=== PATIENT | female | born 1955 | race Caucasian/White ===

== ENCOUNTER 2019-06-09 16:11 | Emergency (ER) | payer OTHER ==
[~2019-06-09] VITALS: Ht 157.5 cm; Wt 72.6 kg
[2019-06-09] MEDS ORDERED: LOTREL 10-40 M1 EACH PO (16:18)
[2019-06-10] MEDS ORDERED: DOLOGESIC 500-1 EACH PO (01:48)
== END 2019-06-10 02:02 ==
LOC: ER 16:11
DX: I16.0 Hypertensive urgency (principal); I10 Essential (primary) hypertension; M54.5 Low back pain

== ENCOUNTER 2019-06-18 06:00 | Emergency (ER) | payer OTHER ==
[~2019-06-18] VITALS: Ht 157.5 cm; Wt 72.6 kg
[~2019-06-18 06:00] MED LIST: DOLOGESIC 500-1 EACH PO; LOTREL 10-40 M1 EACH PO
== END 2019-06-18 12:27 | disposition home or self-care (01) ==
LOC: ER 06:00
DX: G89.29 Other chronic pain (principal); R07.89 Other chest pain
CPT/HCPCS: 71260; Q9965

== ENCOUNTER 2021-05-06 16:21 | Emergency (ER) | payer OTHER ==
[~2021-05-06] VITALS: Ht 165.1 cm; Wt 93.0 kg
== END 2021-05-06 20:15 | disposition home or self-care (01) ==
LOC: ER 16:21
DX: R10.12 Left upper quadrant pain (principal)

== ENCOUNTER 2023-08-26 04:58 | Emergency (ER) | payer OTHER ==
[~2023-08-26] VITALS: Ht 157.5 cm; Wt 72.6 kg
[2023-08-26] MEDS ORDERED: SYNTHROID75 MCG PO (05:25)
[2023-08-26] MEDS ORDERED: HYOSCYAMINE SULFATE 0.125 MG TAB.SUBL SL STA (05:56)
[2023-08-26] MEDS ORDERED: FAMOTIDINE/PF 20 MG/2 ML VIAL IV PUSH STA (05:57)
[2023-08-26] MEDS ORDERED: PROMETHAZINE HCL 50 MG/ML AMPUL IM STA (05:57)
[2023-08-26] MEDS ORDERED: LACTOBACILLUS ACIDOPHILUS 1 CAP CAP PO STA (05:58)
[2023-08-26] MEDS ORDERED: 0.9 % SODIUM CHLORIDE 1,000 ML IV ONE (06:00)
[2023-08-26 06:31] LABS: HEMATOCRIT 33.2 % (36.0-45.00); HEMOGLOBIN 11.1 g/dL (12.0-15.00); MEAN CORPUSCULAR HEMOGLOBIN 29.8 pg (27.00-32.0); MEAN CORPUSCULAR HGB CONC 33.5 g/dl (32.0-36.0); PLATELET COUNT 177 K/uL (150-450); RED BLOOD COUNT 3.73 M/uL (4.00-6.00); RED CELL DISTRIBUTION WIDTH 13.5 % (11.5-14.5)
[2023-08-26 07:10] LABS: ALBUMIN 3.1 gm/dL (3.4-5.0); BILIRUBIN TOTAL 0.28 mg/dL (0.3-1.2); CALCIUM 8.4 mg/dL (8.5-10.1); CREATININE SERUM 1.18 mg/dL (0.55-1.02); GFR 45.69; GLOBULINA 4.6 G/DL (2.4-3.5); POTASSIUM 3.6 mEq/L (3.5-5.1); TOTAL PROTEIN 7.7 gm/dL (6.4-8.2)
[2023-08-26 07:32] LABS: PH,URINE 5.5 (5.0-8.0); URINE APPEARANCE Cloudy; URINE BILIRRUBIN Small (NEGATIVE); URINE BLOOD Moderate; URINE COLOR Dark Yellow; URINE GLUCOSE Negative (NEGATIVE); URINE LEUKOCYTE Small; URINE NITRATE Negative; URINE PROTEIN 30 (NEGATIVE)
[2023-08-26 07:35] LABS: URINE EPITHELIAL CELLS 30.8 uL (0.0-38.8); URINE RBC 54.6 uL (0.0-20.8); URINE WBC 57.7 uL (0.0-23.2)
[2023-08-26 07:50] LABS: URINE EPITHELIAL CELLS 0-4 /HPF
[2023-08-26] MEDS ORDERED: ONDANSETRON ODT8 MG PO (10:15)
[2023-08-26] MEDS ORDERED: PEPCID AC20 MG PO (10:15)
== END 2023-08-26 10:35 | disposition home or self-care (01) ==
LOC: ER 04:59
PROVIDERS: General Practice
DX: K52.89 Other specified noninfective gastroenteritis and colitis (principal); Z88.8 Allergy status to other drugs, medicaments and biological substances; I10 Essential (primary) hypertension; E03.9 Hypothyroidism, unspecified
CPT/HCPCS: 36415; 96365; 96366; 96372; 99282; J2250; J3490; J7030

== ENCOUNTER 2024-03-18 09:19 | Emergency (ER) | payer OTHER ==
[~2024-03-18] VITALS: Ht 157.5 cm; Wt 77.1 kg
[~2024-03-18 09:19] MED LIST changes: +ONDANSETRON ODT8 MG PO; +PEPCID AC20 MG PO; +SYNTHROID75 MCG PO
[2024-03-18] MEDS ORDERED: AZOR 5-40 MG T1 EACH (09:30)
[2024-03-18] MEDS ORDERED: FAMOTIDINE/PF 20 MG/2 ML VIAL IV PUSH STA (09:50)
[2024-03-18] MEDS ORDERED: ORPHENADRINE CITRATE 30 MG/ML AMPUL IM STA (09:51)
[2024-03-18] MEDS ORDERED: KETOROLAC TROMETHAMINE 30 MG VIAL IM STA (09:51)
[2024-03-18 10:39] LABS: HEMOGLOBIN 12.8 g/dL (12.0-15.00); MEAN CELL VOLUME 89.1 fL (80.00-100.00); MEAN CORPUSCULAR HGB CONC 33.7 g/dl (32.0-36.0); PLATELET COUNT 262 K/uL (150-450); RED BLOOD COUNT 4.26 M/uL (4.00-6.00); RED CELL DISTRIBUTION WIDTH 13.7 % (11.5-14.5)
[2024-03-18 11:02] LABS: CALCIUM 9.7 mg/dL (8.5-10.1); CREATININE SERUM 0.93 mg/dL (0.55-1.02); GFR 59.95; POTASSIUM 3.68 mEq/L (3.5-5.1)
[2024-03-18 11:52] LABS: URINE APPEARANCE Error; URINE BILIRRUBIN Negative (NEGATIVE); URINE BLOOD Negative; URINE COLOR Yellow; URINE GLUCOSE Negative (NEGATIVE); URINE KETONE Trace (NEGATIVE); URINE LEUKOCYTE Negative; URINE NITRATE Negative; URINE PROTEIN Negative (NEGATIVE); URINE UROBILINOGEN 0.2 E.U./dl
[2024-03-18 11:55] LABS: URINE CAST 1.52 uL (0.0-1.40); URINE EPITHELIAL CELLS 7.4 uL (0.0-38.8); URINE RBC 13.8 uL (0.0-20.8); URINE WBC 4.3 uL (0.0-23.2)
== END 2024-03-18 13:00 | disposition home or self-care (01) ==
LOC: ER 09:21
PROVIDERS: General Practice
DX: M54.9 Dorsalgia, unspecified (principal); Z88.6 Allergy status to analgesic agent
CPT/HCPCS: 36415; 72070; 96365; 96372; 99283; J1885; J2360; J3490